=== PATIENT | male | born 1995 | race Caucasian/White ===

== ENCOUNTER 2023-05-08 13:12 | Emergency (ER) | payer MEDICAID ==
[~2023-05-08] VITALS: Ht 180.3 cm; Wt 100.0 kg
[~2023-05-08 13:12] MED LIST: NO HOME MEDS
[2023-05-08 13:21] VITALS: BP 133/72
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
== END 2023-05-08 14:47 | disposition home or self-care (01) ==
LOC: ER 13:14
DX: S00.511A Abrasion of lip, initial encounter (principal); Z56.0 Unemployment, unspecified; V89.2XXA Person injured in unspecified motor-vehicle accident, traffic, initial encounter; Y93.89 Activity, other specified; Y92.89 Other specified places as the place of occurrence of the external cause; Y99.8 Other external cause status
CPT/HCPCS: 71045; 93005; 99283

== ENCOUNTER 2025-01-23 12:02 | Emergency (ER) | payer MEDICAID ==
[~2025-01-23] VITALS: Ht 177.8 cm; Wt 104.2 kg
[2025-01-23] MEDS: amoxicillin 250mg capsule PO ONE (13:04)
[2025-01-23] MEDS: acetaminophen 325mg tablet PO ONE (13:06)
[2025-01-23 13:12] VITALS: BP 138/80; PULSE 96; RESP 18; TEMP 99.9; O2SAT 98
== END 2025-01-23 13:14 | disposition home or self-care (01) ==
LOC: ER 12:03
DX: K04.7 Periapical abscess without sinus (principal); K02.9 Dental caries, unspecified
CPT/HCPCS: 99283

== ENCOUNTER 2025-05-01 11:24 | Emergency (ER) | payer MEDICAID ==
[~2025-05-01] VITALS: Ht 180.3 cm; Wt 86.4 kg
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
--- NOTE | 2025-05-01 13:22 | RADIOLOGY REPORT ---
CLINICAL INDICATION: Trauma TECHNIQUE: 3 radiographic views of the right forearm were obtained. Comparison: None FINDINGS/IMPRESSION: There is no evidence of acute fracture or dislocation. The visualized joint space is well maintained. The alignment is anatomical. There is no radiopaque foreign body.
[2025-05-01] MEDS: oxyCODONE IR 5mg (immed. release) tablet PO ONE (15:33)
[2025-05-01 16:28] VITALS: BP 128/78; PULSE 97; RESP 14; TEMP 97.8; O2SAT 98
== END 2025-05-01 16:31 | disposition home or self-care (01) ==
LOC: ER 11:24 → EEVIPCON 11:24 → ER 16:31
DX: S01.01XA Laceration without foreign body of scalp, initial encounter (principal); S06.0X0A Concussion without loss of consciousness, initial encounter; M79.631 Pain in right forearm; X58.XXXA Exposure to other specified factors, initial encounter; Y93.89 Activity, other specified; Y92.89 Other specified places as the place of occurrence of the external cause; Y99.8 Other external cause status
CPT/HCPCS: 12002; 70450; 73090; 99284

== ENCOUNTER 2025-05-17 10:16 | Emergency (ER) | payer MEDICAID ==
[~2025-05-17] VITALS: Ht 177.8 cm; Wt 81.8 kg
[2025-05-17 10:31] VITALS: BP 124/74; PULSE 86; RESP 15; O2SAT 98
--- NOTE | 2025-05-17 10:36 | Physician Documentation ---
History of Present Illness ~ Chief Complaint: Staple Removal Stated Complaint: HEAD LAC Time Seen by MD: 10:37 Primary Medical Doctor: NONE HPI This is a 29-year-old male who presents requesting staple removal from a laceration to his right scalp, patient reports they were placed due to laceration approximately 10 days prior, patient reports no complications with the wound including no pain, swelling, or discharge from the area and reports no fever. Patient reports no other acute symptoms or concerns. Tetanus Within 5 Years: Yes Medication Reconciliation Allergies: Coded Allergies: No Known Allergies (Unverified , 01/23/25) Miscellaneous Medications Home Med List (No Home Medications), (Reported) Past Medical History Past Medical History: No Pertinent History Past Surgical History: no surgical history Alcohol Use: None Drug Use: none Lives with: Family Lives In: Home Occupation: unemployed, student Review of Systems ROS As stated above in the HPI, otherwise all systems are reviewed and negative. Physical Exam Vital Signs: Temperature: 98.5, Heart Rate: 86, Respiratory Rate: 15, BP: 124/74, Pulse Oximetry: 98, Weight: 81.820 Oxygen Flow Rate: 0 Physical Exam VITALS: Reviewed and as above. GENERAL: Alert, nontoxic appearing, no apparent distress. HEENT: Stapled wound to left scalp appears well healing with no discharge, swelling, or erythema RESPIRATORY: No increased work of breathing, no respiratory distress, speaking in full clear sentences Procedure Suture/Staple Removal : Location: head Removed without Complications: Yes # of Sutures/Alysia Removed: 5 Steri-Strips applied?: No Delayed Suture/Staple Removal: No Tolerated Procedure Well?: yes, no complications Progress Results/Orders Results/Orders Vital Signs 05/17/25 05/17/25 10:31 11:12 Temp 98.5 98.5 Pulse 86 Resp 15 B/P (MAP) 124/74 Pulse Ox 98 O2 Flow Rate 0 Medical Decision Making Findings This 29-year-old male presented requesting suture removal from a laceration to his scalp, he reported no symptoms of complication. The wound appears well healing without complications and removal of alysia is indicated. Patient provided home care instructions and return to care precautions which he verbalized understanding of. Differential Dx:Considerations: Include: Cellulitis, Suture removal, Wound dehiscence, Other (Abscess, wound infection) Departure Disposition: 01 HOME / SELF CARE / HOMELESS Impression: Primary Impression: Scalp wound Qualified Codes: S01.01XD - Laceration without foreign body of scalp, subseq uent encounter Additional Impression: Removal of staple Condition: Improved Discharge Instructions: Suture Removal, Care After Additional Instructions: Keep the area clean and dry, you may wash the area gently until the scab is completely healed over. Please follow up with your primary care provider in the next few days. Please return to the emergency department for any new or worsening concerning symptoms. Referrals: NO PRIMARY CARE PROVIDER (PCP) Education Educated: Patient Educated regarding: diagnosis, treatment, prognosis, need for follow up Signature Scribe Signature: No scribe Attestation: The note accurately reflects work and decisions made by me.SHUN Owens 05/17/25 20:47 JOYCE GRAF May 17, 2025 10:36 JILL TEE MD May 19, 2025 07:35
[2025-05-17 11:12] VITALS: TEMP 98.5
== END 2025-05-17 11:14 | disposition home or self-care (01) ==
LOC: ER 10:16
DX: S01.01XD Laceration without foreign body of scalp, subsequent encounter (principal); X58.XXXD Exposure to other specified factors, subsequent encounter
CPT/HCPCS: 99281